=== PATIENT | male | born 1955 | race Caucasian/White ===

== ENCOUNTER 2018-08-03 17:48 | Observation (INO) | payer BC, OTHER ==
[~2018-08-03] VITALS: Ht 188 cm; Wt 70.9 kg
[2018-08-03] MEDS ORDERED: KETOROLAC 30 MG/1 ML IVPush ONE (18:00)
[2018-08-03] MEDS ORDERED: PLEASE ENTER HEIGHT AND WEIGHT MC SCH (18:00)
[2018-08-03] MEDS ORDERED: PLEASE ENTER ALLERGIES MC SCH (18:00)
[2018-08-03 18:14] LABS: BASOPHILS % (AUTO) 0 % (0-1); EOSINOPHILS # (AUTO) 0.03 x10^3/uL (0-0.4); EOSINOPHILS % (AUTO) 0 % (1-7); LYMPHOCYTES # (AUTO) 1.29 x10^3/uL (1-3.4); LYMPHOCYTES % (AUTO) 10 % (22-44); MD NO; MEAN CORPUSCULAR HEMOGLOBIN 32.5 pg (27.5-34.5); MEAN CORPUSCULAR HGB CONC 34.1 g/dL (33.2-36.2); MEAN CORPUSCULAR VOLUME 95.3 fL (81-97); MEAN PLATELET VOLUME 7.4 fL (7.4-10.4); MONOCYTES # (AUTO) 0.97 x10^3/uL (0.2-0.8); MONOCYTES % (AUTO) 7 % (2-9); NEUTROPHILS # (AUTO) 11.17 x10^3/uL (1.8-6.8); NEUTROPHILS % (AUTO) 83 % (42-75); PLATELET COUNT 191 x10^3/uL (130-400); RED BLOOD COUNT 4.73 x10^6/uL (4.38-5.82); RED CELL DISTRIBUTION WIDTH 14.3 % (9.4-14.8)
[2018-08-03] MEDS ORDERED: KETOROLAC 30 MG/1 ML ONE (18:17)
[2018-08-03 18:27] LABS: ALANINE AMINOTRANSFERASE 55 U/L (12-78); ALBUMIN 4.1 g/dL (3.4-5.0); ANION GAP 7 mmol/L (5-15); CALCIUM 9.1 mg/dL (8.5-10.1); CHLORIDE 105 mmol/L (98-107); CREATININE 0.95 mg/dL (0.7-1.3)
[2018-08-03 18:31] LABS: ALKALINE PHOSPHATASE 129 U/L (45-117); BILIRUBIN,TOTAL 0.7 mg/dL (0.2-1.0); TOTAL PROTEIN 8.2 g/dL (6.4-8.2); TROPONIN I < 0.015 ng/mL (0.000-0.045)
[2018-08-03 18:36] LABS: D-DIMER 5.25 ug/mlFEU (0.00-0.52); INTERNATIONAL NORMALIZED RATIO 0.98 (0.93-1.1); PROTHROMBIN TIME 10.4 Seconds (9.6-11.5)
[2018-08-03] MEDS ORDERED: OMNIPAQUE 350 MG/ML, 100ML BOTTLE ONE (19:51)
[2018-08-03] MEDS ORDERED: RIVAROXABAN 15 MG TABLET PO SCH (20:00)
[2018-08-03] MEDS ORDERED: RIVAROXABAN 10 MG TABLET ONE (20:28)
[2018-08-03] MEDS ORDERED: FLUO20CA19 PO (20:34)
[2018-08-03] MEDS ORDERED: PRAM1.5T23 PO (20:34)
[2018-08-03] MEDS ORDERED: DOCUSATE 100 MG CAPSULE PO PRN (21:30)
[2018-08-03] MEDS ORDERED: hydrALAzine 20 MG/ML, 1ML IVPush PRN (21:30)
[2018-08-03] MEDS ORDERED: ONDANSETRON ODT 4 MG PO PRN (21:30)
[2018-08-03 21:40] VITALS: BP 160/93
[2018-08-03 21:54] VITALS: BP 160/93
[2018-08-03] MEDS ORDERED: PRAMIPEXOLE 0.5MG TABLET PO SCH (23:02)
[2018-08-04 00:35] VITALS: BP 156/92
[2018-08-04 00:39] LABS: TROPONIN I 0.017 ng/mL (0.000-0.045)
[2018-08-04 06:23] LABS: TROPONIN I < 0.015 ng/mL (0.000-0.045)
[2018-08-04 07:09] VITALS: BP 143/86
[2018-08-04] MEDS ORDERED: RIVAROXABAN 15 MG TABLET PO SCH (08:00)
[2018-08-04] MEDS ORDERED: FLUOXETINE HCL 20 MG CAPSULE PO SCH (09:00)
[2018-08-04] MEDS ORDERED: PRAMIPEXOLE 0.5MG TABLET PO SCH (09:00)
[2018-08-04 12:27] VITALS: BP 152/89
[2018-08-04] MEDS ORDERED: RIVA15TA PO (12:57)
[2018-08-04] MEDS ORDERED: RIVA20TA PO (12:57)
== END 2018-08-04 14:42 | disposition home or self-care (01) ==
LOC: ED 19:52 → 4EST 20:11 → INTOOBSV 20:11 → DCLOUNGE 08-04 14:28
PROVIDERS: ADMIT Hospitalist; ATTEND Hospitalist
DX: I26.99 Other pulmonary embolism without acute cor pulmonale (principal); I82.401 Acute embolism and thrombosis of unspecified deep veins of right lower extremity; D72.829 Elevated white blood cell count, unspecified; F33.0 Major depressive disorder, recurrent, mild; G25.81 Restless legs syndrome; R03.0 Elevated blood-pressure reading, without diagnosis of hypertension; R07.89 Other chest pain; Z87.891 Personal history of nicotine dependence; Z79.899 Other long term (current) drug therapy
CPT/HCPCS: 36415; 71045; 71275; 78452; 80053; 83880; 84484; 85025; 85379; 85610; 85730; 93005; 93017; 93306; 93970; 96374; 99285; A9502; C9898; G0378; J1885; Q0162; Q9967